=== PATIENT | female | born 1995 | race Hispanic/Latino ===

== ENCOUNTER 2020-06-12 17:38 | Inpatient (IN) | payer MEDICAID ==
[~2020-06-12] VITALS: Ht 165.1 cm; Wt 124.7 kg
[2020-06-12 18:30] LABS: APPEARANCE,URINE Clear (CLEAR); BILIRUBIN,URINE Negative (NEGATIVE); COLOR,URINE Yellow (YELLOW); GLUCOSE, URINE (UA) Negative (NEGATIVE); KETONES,URINE Negative (NEGATIVE); LEUKOCYTE ESTERASE ,URINE Negative (NEGATIVE); NITRATE,URINE Negative (NEGATIVE); OCCULT BLOOD,URINE Negative (NEGATIVE); PH,URINE 6.5 (5.0-8.0); PROTEIN,URINE POS 2+ mg/dL (NEGATIVE)
[2020-06-12 18:47] LABS: BACTERIA,URINE Few /HPF (None Seen); RBC,URINE 0-1 /HPF (0-1); WBC,URINE 0-1 /HPF (0-1)
[2020-06-12 18:48] LABS: SQUAMOUS EPITHELIAL CELL,UR Few /HPF (0-2)
[2020-06-12] MEDS: AMPICILLIN 2GM+NS 100ML 100 ML IV SCH (19:06)
[2020-06-12] MEDS: LACTATED RINGERS 1000ML 1,000 ML IV PRN ×2 (19:06→20:40)
[2020-06-12 19:45] VITALS: BP 135/89
[2020-06-12] MEDS ORDERED: BUTORPHANOL TARTRATE 2 MG/ML IVP PRN (20:15)
[2020-06-12] MEDS ORDERED: TERBUTALINE SULFATE VIAL 1MG/ML SQ PRN (20:15)
[2020-06-12] MEDS: CITRIC ACID/SODIUM CITRATE 30 ML UDCUP PO SCH (20:40)
[2020-06-12 21:48] LABS: HEMATOCRIT 36.7 % (36-48); MEAN CORPUSCULAR HEMOGLOBIN 26.7 pg (27.0-33.0); MEAN CORPUSCULAR HGB CONC 32.4 g/dL (32.0-36.0); MEAN CORPUSCULAR VOLUME 82.5 fL (79-99); RED BLOOD CELL COUNT(AUTO) 4.45 MIL/uL (4.00-5.50); RED CELL DISTRIBUTION WIDTH 13.2 % (11.0-15.5); WHITE BLOOD COUNT (AUTO) 9.8 K/uL (4.8-10.8)
[2020-06-12 21:59] LABS: CREATININE 0.7 mg/dL (0.5-1.5)
[2020-06-12 22:04] LABS: ALBUMIN 2.7 g/dL (3.5-5.0); BILIRUBIN,TOTAL 0.1 mg/dL (0.2-1.0); TOTAL PROTEIN, SERUM 7.1 g/dL (6.0-8.3); URIC ACID 5.7 mg/dL (2.6-7.2)
[2020-06-12 22:09] LABS: INR 0.84 (0.85-1.15); PROTHROMBIN TIME 9.1 SEC (9.6-11.6)
[2020-06-13] MEDS: AMPICILLIN 2GM+NS 100ML 100 ML IV SCH ×2 (00:47→05:42)
[2020-06-13] MEDS: LACTATED RINGERS 1000ML 1,000 ML IV PRN (03:45)
[2020-06-13] MEDS ORDERED: LACTATED RINGERS 1000ML 1,000 ML IV SCH (09:00)
[2020-06-13] MEDS ORDERED: CALDOLOR 800MG+NS 250ML 250 ML IV PRN (09:00)
[2020-06-13] MEDS ORDERED: OXYTOCIN-LR 20 UNITS/1000 ML 1,000 ML IV SCH (09:00)
[2020-06-13] MEDS ORDERED: OXYTOCIN 10 USP UNITS/ML IM SCH (09:00)
[2020-06-13] MEDS ORDERED: DURAMORPH PF1 MG/ML 10ML AMP IV ONE (12:18)
[2020-06-13] MEDS ORDERED: FENTANYL CITRATE PF 50 MCG/1 ML 2ML VIAL ONE (12:18)
[2020-06-13] MEDS ORDERED: ONDANSETRON HCL 4 MG/2 ML VIAL ONE (12:35)
[2020-06-13] MEDS ORDERED: PHENYLEPHRINE HCL 10 MG/ML 1ML VIAL IV ONE (12:37)
[2020-06-13] MEDS ORDERED: ACETAMINOPHEN-CODEINE 300/30MG TAB PO PRN (14:00)
[2020-06-13] MEDS ORDERED: BISACODYL 10 MG SUPP.RECT RC PRN (14:00)
[2020-06-13] MEDS ORDERED: PROMETHAZINE HCL 25 MG/ML 1ML AMPULE IM PRN (14:00)
[2020-06-13] MEDS ORDERED: LANOLIN 30GM OINTMENT TP PRN (14:00)
[2020-06-13] MEDS ORDERED: DEXTROSE 5 %-0.45 % NACL 1,000 ML IV PRN (14:00)
[2020-06-13] MEDS ORDERED: OXYTOCIN-LR 20 UNITS/1000 ML 1,000 ML IV PRN (14:00)
[2020-06-13] MEDS ORDERED: DIPHENHYDRAMINE HCL 25 MG CAPSULE PO PRN (14:00)
[2020-06-13] MEDS ORDERED: CEFAZOLIN 3GM /D5W 100ML 100 ML IV SCH (14:00)
[2020-06-13] MEDS ORDERED: MEPERIDINE-PF 75 MG/ML SYG IM PRN (14:00)
[2020-06-13 15:24] VITALS: BP 145/79
[2020-06-13] MEDS: HYDROCODONE/ACETAMINOPHEN 5/325 MG TAB PO PRN ×2 (15:44→22:26)
[2020-06-13 19:32] VITALS: BP 139/79
--- NOTE | 2020-06-13 20:25 | NUR ---
ACTIVITY/COMFORT ABD BINDER APPLIED, ASSISTED TO SIDE OF BED TO DANGLE, TOLERATED WELL Addendum: 06/14/20 at 0051 by BENITA RAMIREZ LVN Amended: Links added.
[2020-06-13] MEDS: DOCUSATE SODIUM 100 MG CAP PO SCH (20:45)
[2020-06-13] MEDS: SIMETHICONE 80 MG TAB.CHEW PO PRN (20:45)
[2020-06-13] MEDS: CEFAZOLIN SODIUM 1 GM VIAL IVP PRN (22:11)
[2020-06-13] MEDS: CALDOLOR 800MG+NS 250ML 250 ML IV SCH (22:50)
[2020-06-13 23:25] VITALS: BP 129/78
[2020-06-14 03:25] VITALS: BP 118/67
[2020-06-14] MEDS: HYDROCODONE/ACETAMINOPHEN 5/325 MG TAB PO PRN (04:28)
[2020-06-14] MEDS: CEFAZOLIN SODIUM 1 GM VIAL IVP PRN (05:25)
[2020-06-14] MEDS: CALDOLOR 800MG+NS 250ML 250 ML IV SCH (05:40)
--- NOTE | 2020-06-14 05:45 | NUR ---
GREENE CATHETER F/C REMOVED , INTACT, TOLERATED WELL, INSTRUCTED TO CALL NURSE WHEN SHE HAS URGE TO VOID Addendum: 06/14/20 at 0555 by BENITA RAMIREZ LVN Amended: Links added.
[2020-06-14 07:18] LABS: HEPATITIS Bs ANTIGEN SCREEN P Negative (Negative)
[2020-06-14 07:36] LABS: HEMATOCRIT 30.4 % (36-48); MEAN CORPUSCULAR HEMOGLOBIN 26.8 pg (27.0-33.0); MEAN CORPUSCULAR HGB CONC 32.6 g/dL (32.0-36.0); MEAN CORPUSCULAR VOLUME 82.4 fL (79-99); RED BLOOD CELL COUNT(AUTO) 3.69 MIL/uL (4.00-5.50); RED CELL DISTRIBUTION WIDTH 13.1 % (11.0-15.5); WHITE BLOOD COUNT (AUTO) 6.7 K/uL (4.8-10.8)
[2020-06-14 08:08] VITALS: BP 124/84
[2020-06-14] MEDS: DOCUSATE SODIUM 100 MG CAP PO SCH ×2 (09:09→20:47)
[2020-06-14] MEDS: SIMETHICONE 80 MG TAB.CHEW PO PRN ×2 (09:09→20:47)
--- NOTE | 2020-06-14 09:15 | NUR ---
SS Referral for HX Depression and suicide attempt in years past; no longer has ideations. SW met with pt. who is alert, oriented and appropriate in affect and behavior. Pt. stated that she resides at home/duplex with her spouse and 2y; 2y is currently being cared for by her . All utilities reportedly connected and family has own transportation. 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 Benefits in place include Medicaid and WIC. Carseat, crib, baby clothes and diapers reportedly in place. There are no smokers in the home. Pt. denied any history of domestic violence or history of illicit substance use. Pt. admitted to history of depression and suicide attempt seven years ago when she was a freshman in high school. Pt. reportedly sought treatment and counseling in 2012. Pt. denied any signs/symptoms of depression, denied history of PPD with 2y. Pt. voiced an understanding of symptoms leading to PPD and was encouraged to seek assistance if needed; pt. verbalized an understanding. Plan is for pt. and baby to return home when medically cleared. Pt's spouse will provide transportation home and assist post discharge. Pt. was provided with list of community resources, including local mental health clinics/counselor. Pt. voiced no SS needs. Addendum: 06/14/20 at 1037 by ROJELIO LIMA Amended: Links added.
[2020-06-14 11:51] VITALS: BP 140/63
[2020-06-14] MEDS: IBUPROFEN 800 MG TAB PO SCH ×2 (14:07→22:04)
[2020-06-14 16:12] VITALS: BP 149/86
[2020-06-14] MEDS ORDERED: DIPH,PERTUSS(ACELL),TET VAC/PF 0.5 ML VIAL IM ONE (17:00)
[2020-06-14 19:23] VITALS: BP 135/67
[2020-06-14] MEDS: CITRIC ACID/SODIUM CITRATE 30 ML UDCUP PO SCH (20:15)
[2020-06-14 23:59] VITALS: BP 122/68
[2020-06-15] MEDS: AMPICILLIN 2GM+NS 100ML 100 ML IV SCH ×2 (00:15→06:15)
[2020-06-15 03:40] VITALS: BP 134/81
[2020-06-15] MEDS: IBUPROFEN 800 MG TAB PO SCH (05:54)
[2020-06-15 07:35] VITALS: BP 143/88
[2020-06-15] MEDS: SIMETHICONE 80 MG TAB.CHEW PO PRN (08:53)
[2020-06-15] MEDS: DOCUSATE SODIUM 100 MG CAP PO SCH (08:53)
--- NOTE | 2020-06-15 10:45 | NUR ---
PATIENT LEFT UNIT VIA WHEELCHAIR WITH BELONGINGS IN HAND. PERSONAL VEHICLE USED FOR TRANSPORTATION ACCOMPANIED BY SIGNIFICANT OTHER. BABY SECURE IN CARSEAT. NO COMPLAINTS OR CONCERNS ADDRESSED FROM PATIENT ON DISCHARGE. Addendum: 06/15/20 at 1056 by JASON HOOD LVN LVN CORRECTION PATIENT LEFT UNIT VIA WHEELCHAIR WITH BABY IN ARMS.
== END 2020-06-15 10:45 | disposition home or self-care (01) | DRG 539 ==
LOC: EDH 17:38 → OBSVTOIN 17:56 → LDH 17:56 → WSH 06-13 15:20
PROC: 0UB70ZZ Excision of Bilateral Fallopian Tubes, Open Approach (ICD-10-PCS; 2020-06-13)
PROC: 3E0234Z Introduction of Serum, Toxoid and Vaccine into Muscle, Percutaneous Approach (ICD-10-PCS; 2020-06-13)
PROC: 10D00Z1 Extraction of Products of Conception, Low, Open Approach (ICD-10-PCS; principal; 2020-06-13 12:00)
DX: O32.1XX0 Maternal care for breech presentation, not applicable or unspecified (principal); O36.8130 Decreased fetal movements, third trimester, not applicable or unspecified; O41.03X0 Oligohydramnios, third trimester, not applicable or unspecified; Z3A.35 35 weeks gestation of pregnancy; Z37.0 Single live birth; O34.211 Maternal care for low transverse scar from previous cesarean delivery; O36.8190 Decreased fetal movements, unspecified trimester, not applicable or unspecified; O62.2 Other uterine inertia; O69.1XX0 Labor and delivery complicated by cord around neck, with compression, not applicable or unspecified; Z30.2 Encounter for sterilization; Z23 Encounter for immunization
CPT/HCPCS: 36415; 59510; 76819; 80053; 81001; 84550; 85027; 85384; 85610; 85730; 86592; 86850; 86900; 86901; 87340; 88302; 90715; 96360; 96361; 96372; A4344; G0378; J0290; J0595; J0690; J1741; J2274; J2370; J2405; J2590; J3010; J3105; J7120

== ENCOUNTER 2020-06-24 09:12 | Emergency (ER) | payer MEDICAID ==
[2020-06-24 09:37] LABS: BASOPHILS % (AUTO) 0.2 % (0.0-5.0); HEMATOCRIT 37.1 % (36-48); LYMPHOCYTES % (AUTO) 19.6 % (21.0-51.0); MEAN CORPUSCULAR HEMOGLOBIN 26.5 pg (27.0-33.0); MEAN CORPUSCULAR HGB CONC 32.6 g/dL (32.0-36.0); MEAN CORPUSCULAR VOLUME 81.4 fL (79-99); MONOCYTES % (AUTO) 5.7 % (3.0-13.0); NEUTROPHILS % (AUTO) 73.2 % (40.0-77.0); PLATELET COUNT (AUTO) 300 K/uL (130-400); RED BLOOD CELL COUNT(AUTO) 4.56 MIL/uL (4.00-5.50); RED CELL DISTRIBUTION WIDTH 13.6 % (11.0-15.5); WHITE BLOOD COUNT (AUTO) 11.7 K/uL (4.8-10.8)
[2020-06-24 09:48] LABS: CREATININE 0.9 mg/dL (0.5-1.5); POTASSIUM 4.1 mmol/L (3.5-5.1)
[2020-06-24 09:53] LABS: ALBUMIN 3.3 g/dL (3.5-5.0); BILIRUBIN,TOTAL 0.6 mg/dL (0.2-1.0); TOTAL PROTEIN, SERUM 8.3 g/dL (6.0-8.3)
[2020-06-24 10:09] LABS: INR 0.95 (0.85-1.15); PARTIAL THROMBOPLASTIN TIME 34.3 SEC (26.3-35.5); PROTHROMBIN TIME 10.3 SEC (9.6-11.6)
== END 2020-06-24 10:58 | disposition home or self-care (01) ==
LOC: EDH 09:12
DX: O90.0 Disruption of cesarean delivery wound (principal); Z98.890 Other specified postprocedural states
CPT/HCPCS: 36415; 80053; 85025; 85610; 85730

== ENCOUNTER 2023-09-24 00:42 | Emergency (ER) | payer MEDICAID, OTHER ==
[~2023-09-24] VITALS: Ht 165.1 cm; Wt 126.6 kg
[2023-09-24] MEDS ORDERED: LACTATED RINGERS 1000ML 1,000 ML IV ONE (01:00)
[2023-09-24] MEDS ORDERED: ONDANSETRON 4MG INJ IVP ONE (01:00)
[2023-09-24 02:12] LABS: BASOPHILS # (AUTO) 0.03 K/uL (0.00-0.20); BASOPHILS % (AUTO) 0.3 % (0.0-5.0); EOSINOPHILS # (AUTO) 0.24 K/uL (0.00-0.70); EOSINOPHILS % (AUTO) 2.3 % (0.0-8.0); IMMATURE GRANULOCYTE ABSOLUTE 0.04 K/uL (0-1); LYMPHOCYTES # (AUTO) 2.2 K/uL (1.0-4.8); LYMPHOCYTES % (AUTO) 20.7 % (21.0-51.0); MEAN CORPUSCULAR HEMOGLOBIN 26.8 pg (27.0-33.0); MEAN CORPUSCULAR HGB CONC 32.6 g/dL (32.0-36.0); MEAN CORPUSCULAR VOLUME 82.1 fL (79-99); MONOCYTES # (AUTO) 0.6 K/uL (0.1-1.0); NEUTROPHILS # (AUTO) 7.4 K/uL (1.8-7.7); NEUTROPHILS % (AUTO) 70.3 % (40.0-77.0); PLATELET COUNT (AUTO) 267 K/uL (130-400); RED BLOOD CELL COUNT(AUTO) 4.63 MIL/uL (4.00-5.50); RED CELL DISTRIBUTION WIDTH 13.4 % (11.0-15.5); WHITE BLOOD COUNT (AUTO) 10.5 K/uL (4.8-10.8)
[2023-09-24 02:26] LABS: APPEARANCE,URINE CLEAR (CLEAR); BILIRUBIN,URINE NEGATIVE (NEGATIVE); COLOR,URINE YELLOW (YELLOW); GLUCOSE, URINE (UA) NEGATIVE (NEGATIVE); KETONES,URINE 5 mg/dL (NEGATIVE); LEUKOCYTE ESTERASE ,URINE NEGATIVE Leu/uL (NEGATIVE); NITRATE,URINE NEGATIVE (NEGATIVE); OCCULT BLOOD,URINE NEGATIVE (NEGATIVE); PH,URINE 6.5 (5.0-8.0); PROTEIN,URINE 10 mg/dL (NEGATIVE)
[2023-09-24 02:27] LABS: INR < 0.93 (0.85-1.15); PROTHROMBIN TIME 10.8 SEC (9.6-11.6)
[2023-09-24 02:28] LABS: CREATININE 1.1 mg/dL (0.5-1.5); PARTIAL THROMBOPLASTIN TIME 31.6 SEC (26.3-35.5); POTASSIUM 3.8 mmol/L (3.5-5.1)
[2023-09-24 02:32] LABS: ADD UA MICROSCOPIC YES; ALBUMIN 3.8 g/dL (3.5-5.0); BILIRUBIN,TOTAL 0.3 mg/dL (0.2-1.0); TOTAL PROTEIN, SERUM 7.9 g/dL (6.0-8.3)
[2023-09-24 02:46] LABS: MUCUS,URINE FEW LPF (None Seen); SQUAMOUS EPITHELIAL CELL,UR MOD /HPF (0-2)
[2023-09-24] MEDS ORDERED: OMEP40CA21 PO (03:11)
[2023-09-24] MEDS ORDERED: ONDA-104 PO (03:11)
[2023-09-24 03:55] VITALS: BP 129/73; PULSE 95; RESP 17; O2SAT 99
== END 2023-09-24 03:56 | disposition home or self-care (01) ==
LOC: EDH 00:42
DX: K27.9 Peptic ulcer, site unspecified, unspecified as acute or chronic, without hemorrhage or perforation (principal); Z98.890 Other specified postprocedural states
CPT/HCPCS: 99283; 96374; 96361; 80053; 83690; 85025; 85610; 85730; 81001; 81025; 36415; J7120; J2405